=== PATIENT | female | born 1960 ===

== ENCOUNTER 2018-07-03 17:10 | Emergency (ER) | payer BC ==
[~2018-07-03] VITALS: Ht 157.5 cm; Wt 103.0 kg
[2018-07-03 17:19] VITALS: BP 166/89
[2018-07-03] MEDS ORDERED: HYDR-3965 PO (18:11)
== END 2018-07-03 18:28 | disposition home or self-care (01) ==
LOC: ER 17:11
DX: S92.351A Displaced fracture of fifth metatarsal bone, right foot, initial encounter for closed fracture (principal); Z88.2 Allergy status to sulfonamides; Z88.1 Allergy status to other antibiotic agents; X50.1XXA Overexertion from prolonged static or awkward postures, initial encounter; Y93.01 Activity, walking, marching and hiking; Y92.89 Other specified places as the place of occurrence of the external cause; Y99.9 Unspecified external cause status
CPT/HCPCS: 73630; 99284; L4360